=== PATIENT | female | born 1955 | race Caucasian/White ===

== ENCOUNTER → 2021-04-21 13:14 | Outpatient (CLI) | payer MEDICARE, OTHER, SELFPAY ==
--- NOTE | 2021-04-21 | DI.ECHO.S_ITS ---
[facility] +---------+ : : [address] : [address] : : : : [id number] : : : : Phone: [phone]+ Echocardiogram Report + + :Name: AICHA LR Study Date: 04/21/2021 Height: 62 in : :[facility] ReadingLocation: Weight: 175 lb : : Gender: Female BSA: 1.8 m2 : :: 1955 Age: 65 yrs BP: 149/97 mmHg: :Reason For Study: HYPERTENSION : :Ordering Physician: SHAWNA, : :MEGAN Performed By: Marilynn Yao : :Referring: MEGAN MATOS : + + Interpretation Summary The left ventricle is normal in size. Left ventricular ejection fraction is estimated to be 65 +/- 5%. The right ventricle is normal in size and function. There is mild mitral regurgitation. There is mild tricuspid regurgitation. The right ventricular systolic pressure is estimated to be at least 33 mmHg based on an estimated right atrial pressure of 3 mm Hg. Procedure: A two-dimensional transthoracic echocardiogram with color flow and Doppler was performed. The study quality was technically adequate. There is no prior echocardiogram noted for this patient. The patient was in sinus rhythm with heart rates between 76-85 bpm during the exam. Left Ventricle: The left ventricle is normal in size. Proximal septal thickening is noted. There is no echo evidence for significant left ventricular outflow tract obstruction. There is no thrombus. Left ventricular ejection fraction is estimated to be 65 +/- 5%. There are no focal wall motion abnormalities. Diastolic parameters suggest a relaxation abnormality of the left ventricle, consistent with probable normal filling pressures. Right Ventricle: The right ventricle is normal in size and function. Atria: The left atrial size is normal. Right atrial size is normal. There is no Doppler evidence for an interatrial shunt. Mitral Valve: There is mild to moderate mitral annular calcification. The mitral valve leaflets appear mildly thickened, but open well. There is no mitral valve stenosis. There is mild mitral regurgitation. Aortic Valve: The aortic valve is trileaflet. The aortic valve opens well. There is mild aortic valve sclerosis. There is no aortic valve stenosis. No aortic regurgitation is present. Tricuspid Valve: The tricuspid valve is normal. There is mild tricuspid regurgitation. The right ventricular systolic pressure is estimated to be at least 33 mmHg based on an estimated right atrial pressure of 3 mm Hg. Pulmonic Valve: The pulmonic valve leaflets are thin and pliable; valve motion is normal. There is trace pulmonic regurgitation. Great Vessels: The aortic root is normal size. There is aortic root sclerosis/calcification. The ascending aorta is normal in size. The IVC is of normal diameter and collapses greater than 50% with a sniff. This suggests a low right atrial pressure of 3 mm Hg. Pericardium/ Pleura There is a trivial pericardial effusion noted. There are no echocardiographic indications of cardiac tamponade. There is no pleural effusion. MMode/2D Measurements & Calculations LVIDd: 4.0 cm LVOT diam: 1.9 cm LVIDs: 2.7 cm Ao root diam: 2.7 cm FS: 34.0 % asc Aorta Diam: 3.3 cm EPSS: 0.57 cm Ao Arch Diam (Prox Trans): 2.5 cm IVSd: 1.1 cm LVPWd: 0.90 cm LV moreno. diameter/BSA (cm/m^2): 2.2 LV sys. diameter/BSA (cm/m^2): 1.5 LA A2 area: 20.0 cm2 RA long axis: 4.3 cm LA A4 area: 14.5 cm2 RA area: 11.3 cm2 LA length (vol): 4.2 cm RA vol: 25.6 ml LA vol: 58.5 ml RA : 14.1 ml/m2 LA vol index: 32.4 ml/m2 IVC diam: 1.1 cm RVD1 (basal): 3.1 cm TAPSE: 2.3 cm Doppler Measurements & Calculations Ao V2 max: 141.5 cm/sec LVOT Max Dragan: 115.1 cm/sec Ao V2 mean: 101.6 cm/sec LV V1 max P.3 mmHg Ao max P.0 mmHg LV V1 VTI: 26.4 cm Ao mean P.6 mmHg BRANDIN(I,D): 2.4 cm2 Ao V2 VTI: 32.1 cm BRANDIN(V,D): 2.3 cm2 sev ratio: 0.82 BRANDIN indexed to BSA (cm^2/m^2): 1.3 MV E max dragan: 104.6 cm/sec TR max dragan: 273.9 cm/sec MV A max dragan: 116.2 cm/sec TR max P.0 mmHg MV E/A: 0.90 PA V2 max: 112.1 cm/sec Med Peak E' Dragan: 8.0 cm/sec PA V2 mean: 77.8 cm/sec E/E' med: 13.1 PA mean P.8 mmHg Lat Peak E' Dragan: 8.4 cm/sec PA pr(Accel): 28.9 mmHg E/E' lat: 12.4 E/e' average: 12.8 MV dec time: 0.12 sec SV(LVOT): 75.8 ml Reading Physician:03:18 PM
== END ==
PROVIDERS: PCP Specialist; Referring Provider Specialist; Visit Provider Specialist
DX: I08.3 Combined rheumatic disorders of mitral, aortic and tricuspid valves (principal); R53.82 Chronic fatigue, unspecified; I10 Essential (primary) hypertension
CPT/HCPCS: 93306